=== PATIENT | male | born 1995 | race Caucasian/White ===

== ENCOUNTER 2017-06-13 10:05 | Emergency (ER) | payer OTHER ==
[~2017-06-13] VITALS: Ht 190.5 cm; Wt 81.8 kg
[2017-06-13 10:06] VITALS: BP 103/55
[2017-06-13] MEDS ORDERED: CELE1CAP4 PO (10:12)
[2017-06-13] MEDS ORDERED: PENI250T57 PO (10:36)
[2017-06-13] MEDS ORDERED: MAGICMW SSP (10:36)
[2017-06-13] MEDS ORDERED: PENICILLIN V POTASSIUM 500 MG TAB PO ONE (10:45)
== END 2017-06-13 10:42 | disposition home or self-care (01) ==
LOC: M ED 10:05
DX: J02.0 Streptococcal pharyngitis (principal); F17.200 Nicotine dependence, unspecified, uncomplicated; Z79.899 Other long term (current) drug therapy

== ENCOUNTER 2018-07-19 17:09 | Emergency (ER) | payer OTHER ==
[2018-07-19] MEDS: IBUPROFEN 800 MG TAB PO (17:38)
== END 2018-07-19 18:00 | disposition home or self-care (01) ==
LOC: M ED 17:09
DX: M79.621 Pain in right upper arm (principal); M79.622 Pain in left upper arm; Z72.0 Tobacco use
CPT/HCPCS: 73030

== ENCOUNTER 2019-06-27 22:58 | Emergency (ER) | payer OTHER ==
[~2019-06-27] VITALS: Ht 188 cm; Wt 84.1 kg
[~2019-06-27 22:58] MED LIST: CELE1CAP4 PO; IBUP80TA PO; MAGICMW SSP; PENI250T57 PO; ROBA500T PO
[2019-06-27 22:59] VITALS: BP 131/77
[2019-06-27] MEDS ORDERED: AZITHROMYCIN 250 MG TAB PO ONE (23:15)
[2019-06-27] MEDS ORDERED: cefTRIAXone SOD 250 MG VIAL (J0696) IM ONE (23:15)
[2019-06-27] MEDS ORDERED: LIDOCAINE 1% SDV 5 ML VIAL DILUENT ONE (23:15)
== END 2019-06-27 23:50 | disposition home or self-care (01) ==
LOC: M ED 22:58
DX: R36.9 Urethral discharge, unspecified (principal); Z20.2 Contact with and (suspected) exposure to infections with a predominantly sexual mode of transmission; F17.200 Nicotine dependence, unspecified, uncomplicated
CPT/HCPCS: 96372; 99283; J0696